=== PATIENT | male | born 1970 | race Caucasian/White ===

== ENCOUNTER 2018-04-10 18:15 | Emergency (ER) | payer OTHER ==
[~2018-04-10] VITALS: Ht 170.2 cm; Wt 79.4 kg
== END 2018-04-10 22:30 | disposition home or self-care (01) ==
LOC: ER 18:15
DX: L30.8 Other specified dermatitis (principal)

== ENCOUNTER 2018-06-16 03:04 | Emergency (ER) | payer OTHER ==
[~2018-06-16] VITALS: Ht 170.2 cm; Wt 79.4 kg
[2018-06-16] MEDS ORDERED: KETO10TA2 PO (05:16)
== END 2018-06-16 22:12 ==
LOC: ER 03:04
DX: S93.491A Sprain of other ligament of right ankle, initial encounter (principal); X50.9XXA Other and unspecified overexertion or strenuous movements or postures, initial encounter; Y93.89 Activity, other specified; Y92.89 Other specified places as the place of occurrence of the external cause; Y99.8 Other external cause status